=== PATIENT | female | born 1985 | race Caucasian/White ===

== ENCOUNTER 2017-04-09 21:16 | Emergency (ER) | payer MEDICAID ==
[~2017-04-09] VITALS: Ht 160 cm; Wt 72.7 kg
[2017-04-09] MEDS ORDERED: LORazepam 2 MG/ML, 1ML ONE ×2 (21:44→23:09)
[2017-04-09] MEDS ORDERED: ALBU1.25 NEB (21:56)
[2017-04-09] MEDS ORDERED: LORazepam 2 MG/ML, 1ML IVPush ONE ×3 (22:00→23:30)
[2017-04-09] MEDS ORDERED: SODIUM CHLORIDE 0.9% 1,000ML IVBOLUS ONE ×2 (22:00→23:30)
[2017-04-09 22:15] LABS: ASPARTATE AMINO TRANSFERASE 177 U/L (15-37); BLOOD UREA NITROGEN 10 mg/dL (7-18)
[2017-04-09 23:09] LABS: DAU SCREEN DISCLAIMER
[2017-04-09 23:15] LABS: HCG UR OBC PASS
[2017-04-09 23:40] VITALS: BP 140/90
== END 2017-04-10 00:34 | disposition home or self-care (01) ==
LOC: ED 22:57
DX: F10.239 Alcohol dependence with withdrawal, unspecified (principal); R56.9 Unspecified convulsions; I10 Essential (primary) hypertension
CPT/HCPCS: 36415; 70450; 80053; 80307; 81001; 81025; 85025; 93005; 96361; 96374; 96376; 99285; J2060; J7030

== ENCOUNTER → 2017-07-03 | Outpatient (CLI) | payer MEDICAID ==
[~2017-07-03] MED LIST: ALBU1.25 NEB
== END | disposition home or self-care (01) ==
LOC: CFH 08:40 → EDSTATUS 09:00
PROVIDERS: ATTEND Internal Medicine Cardiovascular Disease
DX: R94.31 Abnormal electrocardiogram [ECG] [EKG] (principal); I10 Essential (primary) hypertension
CPT/HCPCS: 93306

== ENCOUNTER 2019-11-30 00:07 | Emergency (ER) | payer MEDICAID ==
[~2019-11-30] VITALS: Ht 157.5 cm; Wt 63.0 kg
[2019-11-30 00:16] VITALS: BP 137/101
--- NOTE | 2019-11-30 00:19 | NUR ---
PT SEATED IN WHEELCHAIR AT NURSES STATION FOR SAFETY, CURRENTLY TALKING ON HER CELL PHONE. CLOSE OBSERVATION CURRENTLY.
--- NOTE | 2019-11-30 00:31 | NUR ---
UNABLE TO COMPLETE ASSESSMENT PT CONTIUES TALKING ON CELL PHONE AT THIS TIME, RELATIONSHIP APPEARS SUPPORTIVE BASED ON WHAT IS BEING OVERHEARD AND SUCH WILL ALLOW TO CONTINUE WITH THIS THERAPUTIC CONVERSATION.
[2019-11-30 00:48] LABS: MEAN CORPUSCULAR HEMOGLOBIN 32.9 pg (27.0-34.8); MEAN CORPUSCULAR HGB CONC 33.2 g/dL (32.4-35.8); MEAN CORPUSCULAR VOLUME 99.2 fL (80-100); MEAN PLATELET VOLUME 7.3 fL (7.4-10.4); PLATELET COUNT 216 x10^3/uL (130-400); RED BLOOD COUNT 4.22 x10^6/uL (3.82-5.3); RED CELL DISTRIBUTION WIDTH 14.9 % (9.6-15.2)
--- NOTE | 2019-11-30 00:51 | NUR ---
Family contact Sheri,
[2019-11-30 00:55] LABS: ALBUMIN 4.4 g/dL (3.4-5.0); ANION GAP 12 mmol/L (5-15); CALCIUM 8.9 mg/dL (8.5-10.1); CHLORIDE 107 mmol/L (98-107); CREATININE 0.71 mg/dL (0.55-1.02)
[2019-11-30 00:59] LABS: SALICYLATE LEVEL < 1.7 mg/dL (2.8-20.0)
[2019-11-30 01:27] LABS: MD YES
[2019-11-30 01:28] LABS: BASOS#(MANUAL) 0.05 x10^3/uL (0-0.1); BASOS% (MANUAL) 1 % (0-1); LYMPH#(MANUAL) 3.82 x10^3/uL (1-3.4); LYMPHS% (MANUAL) 72 % (22-44); MONOS#(MANUAL) 0.16 x10^3/uL (0.3-2.7); MONOS% (MANUAL) 3 % (2-9); REACTIVE LYMPHS # (MANUAL) 0.16 x10^3/uL (0-0); REACTIVE LYMPHS % (MANUAL) 3 % (0-0); SEG#(MANUAL) 1.11 x10^3/uL (1.8-6.8); SEGS% (MANUAL) 21 % (42-75)
--- NOTE | 2019-11-30 01:29 | NUR ---
pt alert and oriented x4 and ambulatory without assist, stated she was tired of being here, was no longer Si and just wanted to go home. Eloped out ambulance bay, ERP notified. Per ERP no follow up required.
[2019-11-30 01:30] LABS: <PLATELET ESTIMATE> ADEQUATE; <PLT MORPHOLOGY> NORMAL PLT MORPH; <RBC MORPHOLOGY> NORMAL
--- NOTE | 2019-11-30 01:32 | NUR ---
pt encouraged to stay, held up middle finger to this RN and walked out.
== END 2019-11-30 01:34 | disposition left against medical advice (07) ==
LOC: ED 01:25
DX: F32.9 Major depressive disorder, single episode, unspecified (principal); F10.120 Alcohol abuse with intoxication, uncomplicated; I10 Essential (primary) hypertension; Y90.0 Blood alcohol level of less than 20 mg/100 ml
CPT/HCPCS: 36415; 80048; 80307; 82040; 84703; 85025; 99283